=== PATIENT | female | born 1980 | race Two or more races ===

== ENCOUNTER 2017-06-01 08:13 | Emergency (ER) | payer BC, OTHER ==
[2017-06-01 08:47] VITALS: RESP 16
--- NOTE | 2017-06-01 09:20 | EDPHY ---
H & P Time Seen by Provider: 06/01/17 08:15 HPI/ROS: This patient complains of a cough and a feeling of bronchial congestion that she describes as slight pressure in her chest when she coughs. She also describes a fever up to 101 2 days prior to arrival and lower grade fever since that time. She has associated nasal congestion and some ear pressure bilaterally. She states the ear pressure is mild she has some popping sounds in her ears associated with this. Of note, her 12-year-old boy a that she also brought in today is diagnosed with pneumonia with an infiltrate on his chest x- ray today. She came in by private vehicle for evaluation of her symptoms. ROS: Constitutional: Fevers. No significant fatigue. HEENT: Nasal congestion but no facial pain or sinus pain. No drainage from her ears. No sore throat. Pulmonary: No pleuritic pain. She does have mild dyspnea. No hemoptysis. Cardiovascular: No chest pain at baseline only with coughing. No leg swelling. GI: No abdominal pain. She has some nausea in the mornings but no vomiting. No diarrhea. Integumentary: No skin rash 7 point ROS is otherwise negative. Smoking Status: Never smoked Physical Exam: Vital signs are normal exception an O2 sat of 93% on room air. She is afebrile. General Appearance: Pleasant 36-year-old female Alert, no distress. Eyes: Pupils equal and round no pallor or injection. ENT, Mouth: Mucous membranes moist. Respiratory: Bilateral wheezing. No rales or rhonchi. Cardiovascular: Regular rate and rhythm. No murmur gallop rub. No JVD or peripheral edema. Gastrointestinal: Abdomen is soft and nontender, no masses, bowel sounds normal. Back: No CVA tenderness Neurological: GCS 15 Skin: Warm and dry, no rashes. Musculoskeletal: Neck is supple nontender. Extremities are symmetrical, full range of motion. Psychiatric: Mood and affect are normal DIFFERENTIAL DIAGNOSIS: After history and physical exam differential diagnosis was considered for URI with cough and reactive airway disease, bronchitis, doubt pneumonia Constitutional: Initial Vital Signs Temperature (C) 36.9 C 06/01/17 08:25 Heart Rate 74 06/01/17 08:25 Respiratory Rate 16 06/01/17 08:25 Blood Pressure 110/73 06/01/17 08:25 O2 Sat (%) 93 06/01/17 08:25 O2 Delivery Mode Room Air Allergies/Adverse Reactions: No Known Allergies Allergy (Verified 06/01/17 08:47) Home Medications: Medication Instructions Recorded Albuterol Hfa Anes Only [Proair 2 puffs IH Q4 PRN #1 mdi 06/01/17 Hfa Icu (*)] Azithromycin [Zithromax] 250 mg PO DAILY #6 tab 06/01/17 MDM/Departure - [facility] ED Course/Re-evaluation: Discussion: This patient appears clinically well-afebrile. She does have clinical findings consistent with bronchitis and her son is diagnosed with pneumonia today. Given this finding will cover her with Zithromax antibiotic as well as an albuterol inhaler. I counseled regarding bronchitis some detail and answered all her questions prior to discharge. Patient understands the need to return emergency department should she have any worsening of her symptoms despite the treatment plan. - Depart Disposition: Home, Routine, Self-Care Clinical Impression: Acute bronchitis Qualifiers: Bronchitis organism: unspecified organism Qualified Code(s): J20.9 - Acute bronchitis, unspecified Condition: Good Instructions: Albuterol (By breathing), Azithromycin (By mouth), Acute Bronchitis (ED) Additional Instructions: Diagnosis: Acute bronchitis Plan: Humidifier Albuterol inhaler with spacer for cough, wheeze or shortness of breath Zithromax antibiotic as prescribed Return for any worsening despite treatment plan Follow up with primary care physician for any ongoing symptoms that persist beyond the next week despite treatment plan. Prescriptions: Albuterol Hfa Anes Only [Proair Hfa Icu (*)] 2 puffs IH Q4 PRN #1 mdi PRN Reason: Wheezing Azithromycin [Zithromax] 250 mg PO DAILY #6 tab Referrals: NONE *PRIMARY CARE P,. [Primary Care Provider] - As per Instructions
[2017-06-01 09:35] VITALS: BP 115/72; PULSE 71; TEMP 98.2; O2SAT 95
== END 2017-06-01 09:34 | disposition home or self-care (01) ==
LOC: CED 08:13
DX: J20.9 Acute bronchitis, unspecified (principal)